=== PATIENT | female | born 1950 | race Caucasian/White ===

== ENCOUNTER 2022-07-19 07:43 | Day surgery (SDC) | payer MEDICARE, OTHER ==
[~2022-07-19 07:43] MED LIST: Midazolam 1 MG/ML 2 ML SDV ONE; Propofol 200 MG/20 ML SDV ONE; Sodium Chloride 0.9% 10 ML Syringe FLUSH PRN
[2022-07-19] MEDS: Lactated Ringers 1,000 ML IV SCH (08:02)
[2022-07-19] MEDS ORDERED: Lidocaine 2% 5 ML SDV ONE (09:00)
[2022-07-19] MEDS ORDERED: Midazolam 1 MG/ML 2 ML SDV IVPUSH ONE (09:00)
[2022-07-19] MEDS ORDERED: Propofol 200 MG/20 ML SDV IVPUSH ONE (09:00)
[2022-07-19] MEDS ORDERED: Glycopyrrolate 0.2 MG/ML SDV IVPUSH ONE (09:00)
[2022-07-19 10:11] VITALS: BP 126/76; PULSE 61
== END 2022-07-19 10:50 | disposition home or self-care (01) ==
LOC: LL.SDS 07:43
PROVIDERS: ATTEND Surgery
DX: K52.9 Noninfective gastroenteritis and colitis, unspecified (principal); K29.50 Unspecified chronic gastritis without bleeding; K21.00 Gastro-esophageal reflux disease with esophagitis, without bleeding; K44.9 Diaphragmatic hernia without obstruction or gangrene; K64.4 Residual hemorrhoidal skin tags; Z88.0 Allergy status to penicillin; K85.90 Acute pancreatitis without necrosis or infection, unspecified; Z88.1 Allergy status to other antibiotic agents; Z88.2 Allergy status to sulfonamides; Z88.7 Allergy status to serum and vaccine; Z88.5 Allergy status to narcotic agent; Z91.018 Allergy to other foods; Z79.899 Other long term (current) drug therapy
CPT/HCPCS: 00813; J2250; J2704; J3490; J7120

== ENCOUNTER 2024-12-13 17:01 | Emergency (ER) | payer MEDICARE, OTHER ==
[2024-12-13] MEDS: methylPREDNISolone Sodium Succinate 40 MG/1 ML SDV IM ONE (17:48)
[2024-12-13] MEDS: Take Home: Doxycycline 100 MG Cap, 4 Cap Pack PO ONE (17:48)
[2024-12-13 18:16] VITALS: BP 137/78; PULSE 83
== END 2024-12-13 18:15 | disposition home or self-care (01) ==
LOC: LL.ED 17:01
DX: S00.86XA Insect bite (nonvenomous) of other part of head, initial encounter (principal); I10 Essential (primary) hypertension; Z90.49 Acquired absence of other specified parts of digestive tract; Z88.1 Allergy status to other antibiotic agents; Z88.5 Allergy status to narcotic agent; Z88.2 Allergy status to sulfonamides; Z91.018 Allergy to other foods; Z88.7 Allergy status to serum and vaccine; Z88.8 Allergy status to other drugs, medicaments and biological substances; W57.XXXA Bitten or stung by nonvenomous insect and other nonvenomous arthropods, initial encounter
CPT/HCPCS: 96372; 99281; A9270-GY; J2919